=== PATIENT | female | born 1960 | race Caucasian/White ===

== ENCOUNTER 2021-11-16 13:36 | Emergency (ER) | payer MEDICARE, OTHER ==
[~2021-11-16] VITALS: Ht 165.1 cm; Wt 56.7 kg
--- NOTE | 2021-11-16 13:47 | NUR ---
TO ER BED 7. BIBDAUGHTER C/O GENERALIZED BODY ACHES X 10 DAYS, POSS RHEUMATOID ARTHRITIS FLARE UP PER DAUGHTER. PT STOPPED TAKING HER MEDICATION FOR ARTHRITIS 2 WEEKS AGO. VITAL SIGNS WITHIN NORMAL LIMITS. BREATHING IS EVEN AND UNLABORED. AWAITING MD BRAGG.
[2021-11-16] MEDS ORDERED: methylPREDNISolone SOD SUCC 125 MG/2ML VIAL IM ONE (14:30)
[2021-11-16] MEDS ORDERED: methylPREDNISolone SOD SUCC 125 MG/2ML VIAL ONE (14:32)
--- NOTE | 2021-11-16 14:41 | NUR ---
PT TAKEN TO X RAY VIA LALIT
[2021-11-16 15:05] LABS: BASOPHILS % (AUTO) 0.4 % (0.0-2.0); EOSINOPHILS % (AUTO) 0.9 % (0.0-6.0); HEMATOCRIT 38 % (33-45); HEMOGLOBIN 12.6 g/dL (11.5-14.8); LYMPHOCYTES # (AUTO) 1.2 K/uL (0.8-4.8); LYMPHOCYTES % (AUTO) 25.5 % (20.0-44.0); MEAN CORPUSCULAR HGB CONC 33 g/dl (31.0-36.0); MEAN CORPUSCULAR VOLUME 88 fL (82-100); MONOCYTES # (AUTO) 0.5 K/uL (0.1-1.30); MONOCYTES % (AUTO) 9.6 % (2.0-12.0); NEUTROPHILS % (AUTO) 63.6 % (43.0-81.0); PLATELET COUNT (AUTO) 212 K/uL (150-450); RED BLOOD CELL COUNT(AUTO) 4.32 MIL/uL (4.0-5.2); WHITE BLOOD COUNT (AUTO) 4.8 K/uL (4.3-11.0)
[2021-11-16 15:28] LABS: CALCIUM, SERUM 9.2 mg/dL (8.5-10.1); CREATININE 0.7 mg/dL (0.6-1.3)
[2021-11-16] MEDS ORDERED: PRED20TA PO (15:46)
--- NOTE | 2021-11-16 15:55 | NUR ---
Patient discharged to home in stable condition. Written and verbal after care instructions given. Patient verbalizes understanding of instruction.
[2021-11-16 15:56] VITALS: BP 123/72
== END 2021-11-16 15:57 | disposition home or self-care (01) ==
LOC: ER 13:36
DX: M06.9 Rheumatoid arthritis, unspecified (principal); Z87.39 Personal history of other diseases of the musculoskeletal system and connective tissue; Z79.52 Long term (current) use of systemic steroids
CPT/HCPCS: 36415; 71045; 72100; 80048; 85025; 96372; 99284; J2930